=== PATIENT | male | born 1980 | race Two or more races ===

== ENCOUNTER 2018-09-20 07:52 | Emergency (ER) | payer OTHER ==
[~2018-09-20] VITALS: Ht 180.3 cm; Wt 78.0 kg
--- NOTE | 2018-09-20 08:02 | NUR ---
[employer]IB [employer] FOR [facility]TB, C/O R SIDE RIB AREA PAIN X 3 WEEKS S/P FALL, DENIES CP. TO ER BED 9, HOOKED TO MONITOR, PROVIDED W WARM BLANKET, DR OLEA AT BEDSIDE
[2018-09-20] MEDS ORDERED: IBUPROFEN 400 MG TABLET ONE (08:09)
--- NOTE | 2018-09-20 08:17 | NUR ---
[employer] AT BEDSIDE
[2018-09-20] MEDS ORDERED: IBUPROFEN 400 MG TABLET PO ONE (08:30)
--- NOTE | 2018-09-20 09:30 | NUR ---
Patient discharged in custody of [employer] in stable condition. Written and verbal after care instructions given. Patient and officers verbalizes understanding of instruction. Pt is OK TO BOOK.
[2018-09-20 09:32] VITALS: BP 141/74
== END 2018-09-20 09:33 ==
LOC: ER 07:54
DX: S20.211A Contusion of right front wall of thorax, initial encounter (principal); W18.39XA Other fall on same level, initial encounter; Y93.89 Activity, other specified; Y92.89 Other specified places as the place of occurrence of the external cause; Y99.8 Other external cause status
CPT/HCPCS: 71100-TC